=== PATIENT | male | born 1960 | race Caucasian/White ===

== ENCOUNTER 2020-05-29 16:14 | Emergency (ER) | payer OTHER, MEDICARE, MEDICAID, SELFPAY ==
[2020-05-29 16:21] VITALS: BP 150/99; BP 164/69; PULSE 55; PULSE 95; RESP 18; TEMP 37.1; O2SAT 100; BMI 23.3
--- NOTE | 2020-05-29 17:31 | PC.NURSE ---
provider at bedside for primary eval.
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
[2020-05-29] MEDS: Cyclobenzaprine HCl 5 MG TABLET PO (17:58)
[2020-05-29] MEDS: oxyCODONE HCl Immed Release 5 MG TABLET PO (17:58)
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
== END 2020-05-29 19:40 | disposition home or self-care (01) ==
PROVIDERS: Emergency Provider Emergency Medicine Emergency Medical Services
DX: S39.012A Strain of muscle, fascia and tendon of lower back, initial encounter (principal); S76.012A Strain of muscle, fascia and tendon of left hip, initial encounter; M25.552 Pain in left hip; I10 Essential (primary) hypertension; V43.53XA Car driver injured in collision with pick-up truck in traffic accident, initial encounter; Y93.9 Activity, unspecified; Y92.9 Unspecified place or not applicable; Y99.9 Unspecified external cause status; Z79.899 Other long term (current) drug therapy
CPT/HCPCS: 72100; 73502; 99283; 99284